=== PATIENT | female | born 1965 | race Caucasian/White ===

== ENCOUNTER → 2024-10-24 09:40 | Outpatient (REF) | payer BC, SELFPAY ==
[2024-10-24 17:18] LABS: Urine Character Cloudy (Clear)
== END ==
LOC: CLAB 09:40
PROVIDERS: ATTENDING PHYSICIAN Nurse Practitioner Adult Health
DX: R82.90 Unspecified abnormal findings in urine (principal)
CPT/HCPCS: 81003; 81015; 87086

== ENCOUNTER → 2025-01-24 13:30 | Outpatient (REF) | payer OTHER, SELFPAY | LOC: HWWDC 13:30 | PROVIDERS: ATTENDING PHYSICIAN Nurse Practitioner Family | DX: Z12.31 Encounter for screening mammogram for malignant neoplasm of breast (principal) | CPT/HCPCS: 77063; 77067 ==